=== PATIENT | female | born 1960 ===

== ENCOUNTER 2022-12-05 08:07 | Outpatient (CLI) | payer OTHER ==
[2022-12-05] MEDS ORDERED: LOSARTAN-HCTZ1 EAC2 PO (15:12)
[2022-12-05] MEDS ORDERED: CHILDREN'S ASPI81 MG PO (15:12)
[2022-12-05] MEDS ORDERED: PEPCID40 MG PO (15:13)
[2022-12-05] MEDS ORDERED: ROSUVASTATIN CAL5 MG PO (15:13)
[2022-12-05] MEDS ORDERED: WIXELA 100-501 EACH IH (15:14)
== END 2022-12-05 08:18 | disposition home or self-care (01) ==
LOC: TOM 08:07
PROVIDERS: ATTEND Colon & Rectal Surgery
DX: Z01.818 Encounter for other preprocedural examination (principal); R10.32 Left lower quadrant pain; K57.32 Diverticulitis of large intestine without perforation or abscess without bleeding; K59.00 Constipation, unspecified; N39.0 Urinary tract infection, site not specified; K62.5 Hemorrhage of anus and rectum; D59.8 Other acquired hemolytic anemias; Z11.59 Encounter for screening for other viral diseases; Z20.828 Contact with and (suspected) exposure to other viral communicable diseases; D68.9 Coagulation defect, unspecified
CPT/HCPCS: 71046; 74177; Q9965

== ENCOUNTER 2022-12-05 11:45 | Inpatient (IN) | payer OTHER ==
[~2022-12-05] VITALS: Ht 160 cm; Wt 79.4 kg
[2022-12-05] MEDS ORDERED: CHILDREN'S ASPI81 MG PO (15:12)
[2022-12-05] MEDS ORDERED: LOSARTAN-HCTZ1 EAC2 PO (15:12)
[2022-12-05] MEDS ORDERED: ROSUVASTATIN CAL5 MG PO (15:13)
[2022-12-05] MEDS ORDERED: PEPCID40 MG PO (15:13)
[2022-12-05] MEDS ORDERED: WIXELA 100-501 EACH IH (15:14)
== END 2022-12-10 09:01 | disposition home or self-care (01) | DRG 331 ==
LOC: EDUNIT# 11:45 → O/R 12-07 09:27 → SURG 12-07 11:45 → SURH 12-07 17:28
PROVIDERS: ADMIT Colon & Rectal Surgery; ATTEND Colon & Rectal Surgery
PROC: 0DBP0ZZ Excision of Rectum, Open Approach (ICD-10-PCS; 2022-12-07)
PROC: 0DJD8ZZ Inspection of Lower Intestinal Tract, Via Natural or Artificial Opening Endoscopic (ICD-10-PCS; 2022-12-07)
PROC: 0DTN0ZZ Resection of Sigmoid Colon, Open Approach (ICD-10-PCS; principal; 2022-12-07 14:00)
DX: K57.32 Diverticulitis of large intestine without perforation or abscess without bleeding (principal); R10.32 Left lower quadrant pain; I11.9 Hypertensive heart disease without heart failure; Z20.822 Contact with and (suspected) exposure to COVID-19